=== PATIENT | male | born 1975 | race Caucasian/White ===

== ENCOUNTER 2017-06-01 23:01 | Emergency (ER) | payer OTHER ==
[~2017-06-01] VITALS: Ht 180.3 cm; Wt 81.7 kg
[~2017-06-01 23:01] MED LIST: ACET325 PO; ALBU90OI6 INH; CETI10 PO; CODGUAEL PO; DOXY100 PO; DULERA 200 MCG/13 GM INH; HYDACE5 PO; Ibuprofen Ib200 MG PO; NAPR500 PO; NAPR550 PO; Nicoderm Cq1 EAC1 TOP; OXYACE5T PO; PENVK500 PO; PRED20 PO; Prednisone20 MG PO; RANI150 PO; RXPROM25 PO
[2017-06-02] MEDS ORDERED: EPIPEN 2-P0.3 MG/0.3 IM (01:12)
[2017-06-02] MEDS ORDERED: Naprosyn500 MG PO (01:12)
[2017-06-02] MEDS ORDERED: Prednisone20 MG PO (01:13)
== END 2017-06-02 01:24 | disposition home or self-care (01) ==
LOC: ER 23:01
DX: K08.89 Other specified disorders of teeth and supporting structures (principal); T78.09XA Anaphylactic reaction due to other food products, initial encounter; F17.200 Nicotine dependence, unspecified, uncomplicated; Z79.899 Other long term (current) drug therapy
CPT/HCPCS: 94640; 96361; 96374; 96375; 99283; J0171; J1200; J1885; J2930; J3490; J7030

== ENCOUNTER 2017-07-08 00:14 | Emergency (ER) | payer OTHER ==
[~2017-07-08] VITALS: Ht 180.3 cm; Wt 83.9 kg
[~2017-07-08 00:14] MED LIST changes: +EPIPEN 2-P0.3 MG/0.3 IM; +Naprosyn500 MG PO
== END 2017-07-08 02:28 | disposition home or self-care (01) ==
LOC: ER 00:14
DX: S61.214A Laceration without foreign body of right ring finger without damage to nail, initial encounter (principal); Z23 Encounter for immunization; F17.210 Nicotine dependence, cigarettes, uncomplicated; W26.8XXA Contact with other sharp object(s), not elsewhere classified, initial encounter
CPT/HCPCS: 12001; 90471; 90714; 99283

== ENCOUNTER 2018-01-19 19:28 | Emergency (ER) | payer SELFPAY ==
[~2018-01-19] VITALS: Ht 180.3 cm; Wt 81.7 kg
[2018-01-19] MEDS ORDERED: Prednisone20 MG PO (20:44)
[2018-01-19] MEDS ORDERED: CLARITIN10 MG PO (20:44)
[2018-01-19] MEDS ORDERED: EPIPEN 2-P0.3 MG/0.3 IM (20:44)
[2018-01-19] MEDS ORDERED: Pepcid40 MG PO (20:44)
== END 2018-01-19 20:55 | disposition home or self-care (01) ==
LOC: ER 19:28
DX: T78.2XXA Anaphylactic shock, unspecified, initial encounter (principal); F17.210 Nicotine dependence, cigarettes, uncomplicated
CPT/HCPCS: 36415; 94640; 96374; 96375; 99283-25; J1100; J3490

== ENCOUNTER 2018-01-21 04:10 | Emergency (ER) | payer SELFPAY ==
[~2018-01-21] VITALS: Ht 182.9 cm; Wt 81.7 kg
[~2018-01-21 04:10] MED LIST changes: +CLARITIN10 MG PO; +Pepcid40 MG PO
[2018-01-21] MEDS ORDERED: BENADRYL25 MG PO (05:12)
[2018-01-21] MEDS ORDERED: Pepcid20 MG PO (05:12)
== END 2018-01-21 05:28 | disposition home or self-care (01) ==
LOC: ER 04:10
DX: T78.40XA Allergy, unspecified, initial encounter (principal); F17.210 Nicotine dependence, cigarettes, uncomplicated; Z79.52 Long term (current) use of systemic steroids; Z79.899 Other long term (current) drug therapy
CPT/HCPCS: 99283; Q0163

== ENCOUNTER 2018-08-14 22:47 | Emergency (ER) | payer SELFPAY ==
[~2018-08-14 22:47] MED LIST changes: +BENADRYL25 MG PO; +Pepcid20 MG PO
== END 2018-08-15 04:00 | disposition left against medical advice (07) ==
LOC: ER 22:47
DX: Z53.21 Procedure and treatment not carried out due to patient leaving prior to being seen by health care provider (principal)

== ENCOUNTER 2018-08-15 01:04 | Emergency (ER) | payer MEDICAID ==
[~2018-08-15] VITALS: Ht 180.3 cm; Wt 83.9 kg
[2018-08-15 02:20] LABS: BASOPHILS ABSOLUTE AUTO 0.06 K/mm3 (0.00-0.23); BASOPHILS PERCENT AUTO 0 % (0-2); EOSINOPHILS ABSOLUTE AUTO 0.27 K/mm3 (0.00-0.68); EOSINOPHILS PERCENT AUTO 2 % (0-6); Hematocrit 46.5 % (37.0-53.0); IMMATURE GRAN ABSOLUTE AUTO 0.06 K/mm3 (0.00-0.10); IMMATURE GRAN PERCENT AUTO 0 % (0-1); LYMPHOCYTES ABSOLUTE AUTO 1.71 K/mm3 (0.84-5.20); LYMPHOCYTES PERCENT AUTO 13 % (21-46); MONOCYTES ABSOLUTE AUTO 0.97 K/mm3 (0.16-1.47); MONOCYTES PERCENT AUTO 7 % (4-13); Mean Corpuscular HGB 31.2 pg (26.0-34.0); Mean Corpuscular HGB Conc 34.4 g/dL (31.5-36.5); Mean Corpuscular Volume 91 fL (80-100); Mean Platelet Volume 9.4 fL (9.1-12.4); NEUTROPHILS ABSOLUTE AUTO 10.53 K/mm3 (1.96-9.15); NEUTROPHILS PERCENT AUTO 78 % (41-73); Platelet Count 336 K/mm3 (150-400); RDW Coefficient Variation 12.5 % (11.7-14.2); RDW Standard Deviation 41.8 fL (35.1-46.3); Red Blood Cell Count 5.13 M/mm3 (4.30-5.90)
[2018-08-15 02:33] LABS: Alanine Aminotransfer (ALT/SGP 216 U/L (12-78); Albumin, Blood 3.8 g/dL (3.4-5.0); Albumin/Globulin Ratio 0.8 (0.8-1.8); Alk Phos 77 U/L (50-136); Anion Gap 7 mmol/L (6-16); Aspartate Aminotrans (AST/SGOT 132 U/L (12-37); Bilirubin, Total 0.6 mg/dL (0.1-1.0); Blood Urea Nitrogen 10 mg/dL (8-24); Bun/Creatinine Ratio 11.4 (12.0-20.0); CO2, Blood 28 mmol/L (21-32); Calcium, Blood 8.9 mg/dL (8.5-10.1); Chloride, Blood 104 mmol/L (98-108); Creatinine, Blood 0.88 mg/dL (0.60-1.20); Ethanol (Alcohol), Blood, Med <3 mg/dL; Globulin, Blood 4.7 g/dL (2.2-4.0); Glomerular Filtration Rate >60 (60-); Glucose, Blood 107 mg/dL (70-99); Potassium, Blood 3.7 mmol/L (3.5-5.5); Salicylate 1.8 mg/dL (2.8-20.0); Sodium, Blood 139 mmol/L (136-145); Total Protein, Blood 8.5 g/dL (6.4-8.2)
[2018-08-15 02:39] LABS: Acetaminophen, Random <2.0 ug/mL (10.0-30.0)
== END 2018-08-15 04:00 | disposition left against medical advice (07) ==
LOC: ER 01:04
PROVIDERS: Emergency Medicine
DX: T45.0X1A Poisoning by antiallergic and antiemetic drugs, accidental (unintentional), initial encounter (principal); F17.210 Nicotine dependence, cigarettes, uncomplicated; Z79.899 Other long term (current) drug therapy
CPT/HCPCS: 80053; 84443; 85025; 93005; 93010; 96360; 99284-25; G0480; J7030

== ENCOUNTER 2019-12-02 07:50 | Emergency (ER) | payer OTHER ==
[~2019-12-02] VITALS: Ht 180.3 cm; Wt 88.5 kg
== END 2019-12-02 10:41 | disposition home or self-care (01) ==
LOC: ER 07:50
DX: S01.81XA Laceration without foreign body of other part of head, initial encounter (principal); F17.210 Nicotine dependence, cigarettes, uncomplicated; Z23 Encounter for immunization; W22.8XXA Striking against or struck by other objects, initial encounter
CPT/HCPCS: 12011; 90471; 90714; 99282-25